=== PATIENT | female | born 1990 | race African-American/Black ===

== ENCOUNTER 2020-09-13 18:33 | Emergency (ER) | payer OTHER, SELFPAY ==
[2020-09-13 18:41] VITALS: BP 133/102; PULSE 84; RESP 17; TEMP 36.9; O2SAT 100
--- NOTE | 2020-09-13 19:00 | PC.NURSE ---
All clothing and belongings removed, pt changed into green psych scrubs (x2 belonging bags labeled and placed behind charge desk), necklace and earrings placed in small bag and labeled (about jewelry states this is all I have left of my mom and if something happens to me can you give my jewelry to my niece, no one else ). Ambulatory steady gait
--- NOTE | 2020-09-13 19:21 | PC.NURSE ---
pt drove self here. reports suicidal thoughts without plan to act. ED MD Samuels in room c this RN and pt. pt tearful. reports she wants to and has thoughts of killing self or going to sleep and not waking up. 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 tearful at present. urine collected.
--- NOTE | 2020-09-13 19:42 | ED.PSYCH ---
HPI - Psych General Chief Complaint: Psychiatric Symptoms Stated Complaint: SI Time Seen by Provider: 09/13/20 19:05 Source: patient Mode of arrival: ambulatory Limitations: no limitations History of Present Illness HPI Narrative: This is a 30 year old female who presents because she states she wants to . She states she has been dealing with depression and feelings of not wanting to live for a long time. She states today she does not want to live any more. She states she could not think of how to kill herself so she came to the ER . She states she just wants to take a pill that will make her go to sleep and not wake up. She does not want her sister or niece to find her. She reports she tried to call her father but he did not want to help help. She has seen a counselor in the past after her mother last year but it has been a while since she talked to them. She denies diagnosis of depression or psychiatric treatment. She has never tried to attempt suicide in the past. She denies drug use. Related Data Home Medications Medication Instructions Recorded Confirmed No Home Medications 09/13/20 09/13/20 Allergies Allergy/AdvReac Type Severity Reaction Status Date / Time No Known Allergies Allergy Verified 09/13/20 23:42 Review of Systems Review of Systems: All systems reviewed & are unremarkable except as noted in HPI and below PMFSH Past Medical History Medical History (Updated 09/14/20 @ 00:37 by Leydi Samuels MD) Patient denies medical problems Surgical History Surgical History (Updated 09/13/20 @ 19:46 by Leydi Samuels MD) No pertinent past surgical history Social History Social History (Updated 09/13/20 @ 19:46 by Leydi Samuels MD) Smoking status: Never smoker Alcohol use details: occasionally but no alcohol use today Substance use type: marijuana Gender identity (if verbalized by the patient): Female Exam Const: General: no acute distress and alert Orientation/consciousness: patient oriented x3 Eyes: Pupils: Equal, round and reactive pupils present EOM: EOMs intact bilaterally Chest: Chest palpation & inspection: normal inspection of the chest Resp: Effort & Inspection: normal respiratory effort and no retractions Auscultation: clear to auscultation bilaterally Cardio: Rate: regular rate Rhythm: regular rhythm Heart sounds: no murmurs GI: GI Palp: Yes Soft to palpation, No Tenderness to palpation present (GI) and No Guarding due to palpation present (GI) Auscultation: normal bowel sounds Skin: General skin exam: normal color Rashes: no rashes Neuro: General: patient oriented x3, moves all extremities and CN's II-XI intact bilaterally Psych: Affect: Sad affect present Thought content: Yes Suicidality present Other: She just states over and over again she wants to . I don't want treatment, I want to . I just want a pill to not wake up . Course Reevaluation(s) Reevaluation #1: Patient is medically cleared. She denies urinary symptoms. Crisis to be called to assess patient. Date: 09/13/20 Time: 21:05 Reevaluation #2: Patent is now stating that she is not suicidal. She states I will not kill myself . She states she was just stressed early due to recent . 11 people in her family have in past year. Crisis evaluated patient and they state she does not meet criteria for inpatient placement. Anna states patient will have close outpatient evaluation and they will call tomorrow. Patient's father came to ER and they got a safety plan for patient and she will be going home with her father. Date: 09/14/20 Time: 00:34 Vital Signs Vital signs: Vital Signs Temperature 98.4 F 09/13/20 18:41 Pulse Rate 84 09/13/20 18:41 Respiratory Rate 17 09/13/20 18:41 Blood Pressure 133/102 H 09/13/20 18:41 Pulse Oximetry 100 09/13/20 18:41 Temperature 97.9 F 09/14/20 01:27 Pulse Rate 62 09/14/20
[2020-09-13 19:54] LABS: Basophils Percent Auto 0.4 % (0.2-1.2); Eosinophils Absolute Auto 0.1 K/mm3 (0-0.3); Eosinophils Percent Auto 0.7 % (0-4.4); Hematocrit 36.2 % (37.0-47.0); Hemoglobin 12.2 g/dL (12.0-15.0); Immature Granulocyte Absolute 0.01 K/mm3 (0.00-0.031); Immature Granulocyte Percent A 0.1 % (0-0.5); Lymphocytes Absolute Auto 2.21 K/mm3 (0.9-3.2); Lymphocytes Percent Auto 29.1 % (18.3-44.2); Mean Corpuscular HGB Conc 33.7 g/dl (32-36); Mean Corpuscular Hemoglobin 28.4 pg (26-34); Mean Corpuscular Volume 84.2 fl (80-100); Mean Platelet Volume 10.4 fl (7.4-10.4); Monocytes Absolute Auto 0.5 K/mm3 (0.1-0.6); Monocytes Percent Auto 6.1 % (2.6-8.5); Neutrophils Absolute Auto 4.8 K/mm3 (1.3-6.7); Neutrophils Percent Auto 63.6 % (45.5-73.1); Platelet Count Result 251 k/mm3 (150-375); Red Cell Distribution Width 12.8 % (11.5-14.5); White Blood Count 7.6 K/mm3 (4.5-10.0)
[2020-09-13 20:01] LABS: Add Urine Microscopic? YES; Appearance Urine Cloudy (Clear); Bacteria Urine Trace /hpf; Bilirubin Urine Negative (Negative); Blood Urine Negative (Negative); Color Urine Yellow (Yellow); Glucose Urine UA Negative (Negative); Ketones Urine Negative (Negative); Leukocyte Esterase Ur 2+ LEU/UL (Negative); Nitrate Urine Negative (Negative); Protein Urine Negative (Negative); RBC Urine 0-2 /hpf (0-2); Specific Grav Ur 1.013 (1.001-1.035); Squamous Epithelial Cell Urine Moderate /hpf (Few); Urobilinogen Urine Negative mg/dL (<2.0); WBC Urine 16-20 /hpf
[2020-09-13 20:03] LABS: Ethanol < 10 mg/dL (<10)
[2020-09-13 20:05] LABS: Alanine Aminotransferase 26 U/L (4-35); Albumin Level 4.4 g/dL (3.5-5.1); Alkaline Phosphatase 58 U/L (38-126); Anion Gap 4 mmol/L (8-16); Aspartate Amino Transferase 31 U/L (14-36); Bilirubin,Total 0.2 mg/dL (0.2-1.3); Blood Urea Nitrogen 13 mg/dL (7-17); Calcium 8.8 mg/dL (8.4-10.2); Carbon Dioxide 29 mmol/L (22-30); Chloride 107 mmol/L (98-107); Estimated CRCL calculation 100 ml/min; Estimated Glomerular Filt Rate > 60; Glucose 94 mg/dL (65-105); Sodium 140 mmol/L (137-145)
[2020-09-13 20:09] LABS: Amphetamine Screen Urine Negative (Negative); Barbiturate Screen Urine Negative (Negative); Benzodiazepines Screen Urine Negative (Negative); Cannabinoid Screen Urine Positive (Negative); Cocaine Screen Urine Negative (Negative); Methadone Screen Urine Negative (Negative); Opiate Screen Urine Negative (Negative); Phencyclidine Screen Urine Negative (Negative)
--- NOTE | 2020-09-13 21:07 | PC.NURSE ---
[facility] notified that pt medically clear per ED MD. They report will send crisis master data analyst to interview pt. pt updated on plan of care.
--- NOTE | 2020-09-13 21:58 | PC.NURSE ---
[address] gluer and slicer hand present in ED to assess pt.
--- NOTE | 2020-09-13 22:03 | PC.NURSE ---
[facility] document reviewer currently in room interviewing pt.
[2020-09-13] MEDS: NITROFURANTOIN MONOHYD MACROCR 100 MG CAP PO (22:39)
--- NOTE | 2020-09-13 23:37 | PC.NURSE ---
Per [facility] Press Operator, awaiting pt's father to present to ED to complete safety plan with pt. Pt remains cooperative and in no acute distress. sitter remains at bedside.
--- NOTE | 2020-09-14 01:25 | PC.NURSE ---
Pt d/c home with her father. pt denies SI/HI/AH/VH on discharge. safety plan and resources provided to pt by [facility] crisis repair department manager prior to d/c. pt's father to take pt home. pt verbalized understanding of need to f/u and get aftercare resources.
[2020-09-14 01:27] VITALS: BP 117/88; PULSE 62; RESP 16; TEMP 36.6; O2SAT 98
[2020-09-14 18:26] LABS: SARS-CoV-2 RNA PCR Negative
== END 2020-09-14 01:29 | disposition home or self-care (01) ==
PROVIDERS: Emergency Provider General Practice; PCP Physician Assistant
DX: F32.9 Major depressive disorder, single episode, unspecified (principal); Z20.822 Contact with and (suspected) exposure to COVID-19
CPT/HCPCS: 36415; 80053; 80307; 81001; 81025; 84443; 85025; 87077; 87086; 87088; 87186; 99284; A9270; C9803; U0003; U0005